=== PATIENT | female | born 1965 | race Caucasian/White ===

== ENCOUNTER → 2019-02-09 | Outpatient (CLI) | payer OTHER | LOC: COL.PUL 11:00 | DX: Z02.71 Encounter for disability determination (principal); M19.042 Primary osteoarthritis, left hand; M19.041 Primary osteoarthritis, right hand ==

== ENCOUNTER → 2019-02-19 | Outpatient (CLI) | payer OTHER | LOC: COL.PUL 12:39 | DX: Z02.71 Encounter for disability determination (principal); F17.210 Nicotine dependence, cigarettes, uncomplicated ==

== ENCOUNTER → 2020-10-31 | Outpatient (CLI) | payer SELFPAY ==
[~2020-10-31] MED LIST: IMDUR 30MG30 MG/TAB PO; NEURONTIN600 MG/TAB PO; NITROSTAT0.4 MG/TAB SL; PRIL40 PO; REGLAN 10MG10 MG/TAB PO; TOPROL XL 50MG50 MG PO; ULTRAM 50MG TAB50 MG PO; XANAX XR1 M1 PO; ZESTRIL 20MG TA20 MG PO; ZOLOFT 100MG100 MG PO
== END ==
LOC: COL.LAB 08:00 → EDSTATUS 11-04 08:30 → COL.CAR 11-04 08:30
DX: Z20.822 Contact with and (suspected) exposure to COVID-19 (principal)

== ENCOUNTER 2021-01-19 07:08 | Day surgery (SDC) | payer SELFPAY ==
[2021-01-19] VITALS (11 sets, daily range): BP systolic 133–172; BP diastolic 73–97; PULSE 56–67; TEMP 98.1
[~2021-01-19] VITALS: Ht 165.1 cm; Wt 79.0 kg
[2021-01-19 08:23] LABS: HEMOGLOBIN 11.1 g/dl (12.5-16.0); MEAN CELL VOLUME 94 fl (80.0-100.0); MEAN CORPUSCULAR HEMOGLOBIN 30 pg (27.0-31.0); MEAN CORPUSCULAR HGB CONC 32 g/dl (33.0-37.0); MEAN PLATELET VOLUME 9.6 fl (7.4-10.4); PLATELET COUNT 375 K/mm3 (130-400); RED BLOOD COUNT 3.74 M/mm3 (4.10-5.30); REDCELL DISTRIBUTION WIDTH-CV 14.8 % (11.5-14.5)
[2021-01-19 08:36] LABS: INR 1.1 (0.8-3.0); PROTHROMBIN TIME 12.5 SECONDS (9.7-12.8)
[2021-01-19 08:39] LABS: CALCIUM 9.3 mg/dL (8.4-10.2); CREATININE, serum 0.78 mg/dL (0.57-1.11); PARTIAL THROMBOPLASTIN TIME 34.9 SECONDS (26.0-37.0)
--- NOTE | 2021-01-19 08:41 | NUR ---
SEE MERGE FOR ALL MEDICATION ADMINISTRATION TIMES/DOSAGES AND INTRA/POST SEDATION ASSESSMENT.
[2021-01-19] MEDS ORDERED: ZESTRIL 20MG TA20 MG PO (08:42)
[2021-01-19] MEDS ORDERED: REGLAN 10MG10 MG/TAB PO (08:42)
[2021-01-19] MEDS ORDERED: PRIL40 PO (08:42)
[2021-01-19] MEDS ORDERED: ZOLOFT 100MG100 MG PO (08:43)
[2021-01-19] MEDS ORDERED: NEURONTIN600 MG/TAB PO (08:43)
[2021-01-19] MEDS ORDERED: ULTRAM 50MG TAB50 MG PO (08:44)
[2021-01-19] MEDS ORDERED: XANAX XR1 M1 PO (08:44)
[2021-01-19] MEDS ORDERED: NITROSTAT0.4 MG/TAB SL (08:45)
--- NOTE | 2021-01-19 10:30 | NUR ---
Automated blood pressure did not cycle over last 30 mins. This nurse has been in and out of room and pt has been alert and talkative during this time. Rt arm is resting on pillow for comfort.
[2021-01-19] MEDS ORDERED: IMDUR 30MG30 MG/TAB PO (10:47)
[2021-01-19] MEDS ORDERED: TOPROL XL 50MG50 MG PO (10:47)
--- NOTE | 2021-01-19 12:45 | NUR ---
Air was removed in 2ml increments from TR band with no bleeding or complications. Rt radial puncture site dressed with folded 2x2 and bandaid. Pt has been steady on feet in room. INT DC'd with catheter intact.
--- NOTE | 2021-01-19 12:55 | NUR ---
Pt was assisted out by wheelchair to mother's car with belongings.
== END 2021-01-19 13:00 | disposition home or self-care (01) ==
LOC: COL.CAR 07:08
PROVIDERS: Internal Medicine Cardiovascular Disease
DX: I25.10 Atherosclerotic heart disease of native coronary artery without angina pectoris (principal); I25.84 Coronary atherosclerosis due to calcified coronary lesion; I42.9 Cardiomyopathy, unspecified; I10 Essential (primary) hypertension; J44.9 Chronic obstructive pulmonary disease, unspecified
CPT/HCPCS: C1769; J1644; J2250; J3010; Q9967